=== PATIENT | female | born 1955 | race Hispanic/Latino ===

== ENCOUNTER 2019-03-15 23:04 | Emergency (ER) | payer BC ==
--- NOTE | 2019-03-15 23:25 | RAD ---
EXAM: Portable chest PROVIDED CLINICAL HISTORY: Syncope COMPARISON: None FINDINGS: Cardiac silhouette appears prominent, likely least partially on the basis of portable technique. No f ocal consolidation, pleural fluid or pneumothorax evident. IMPRESSION: No evidence for an acute cardiopulmonary process.
[2019-03-15 23:39] LABS: #Eosinphils 0.1 thou/uL (0.0-0.7); #Lymphocytes 2.5 thou/uL (1.20-3.40); #Monocytes 0.5 thou/uL (0.11-0.59); #Neutrophils 5.8 thou/uL (1.40-6.50); %Eosinophils 1.2 % (0.0-10.0); %Lymphocytes 28.4 % (21.0-51.0); %Monocytes 5.3 % (0.0-10.0); Hemoglobin 12.7 g/dL (12.0-16.0); Mean Corpuscular HGB CONC 34.5 g/dL (32.0-36.0); Mean Corpuscular Hemoglobin 31.1 pg (27.0-31.0); Platelet Count 323 thou/uL (130-400); RBC Distribution Width 11.7 % (11.5-14.5); Red Blood Cell (RBC) Count 4.09 mill/uL (4.20-5.40); White Blood Cell (WBC) Count 8.9 thou/uL (4.8-10.8)
[2019-03-16 00:01] LABS: ALT (SGPT) 13 U/L (8-55); AST (SGOT) 24 U/L (5-34); Albumin 4.5 g/dL (3.4-4.8); Alkaline Phosphatase 87 U/L (40-110); Anion Gap 16 mmol/L (10-20); BUN (Urea Nitrogen) 29 mg/dL (9.8-20.1); Bilirubin, Total 0.4 mg/dL (0.2-1.2); Calc. Creatinine Clearance 0 mL/min (70-130); Calcium 10.6 mg/dL (7.8-10.44); Carbon Dioxide 23 mmol/L (23-31); Chloride 99 mmol/L (98-107); Estimated GFR-MDRD 41; Globulin 3.7 g/dL (2.4-3.5); Glucose 119 mg/dL (80-115); Potassium 4.1 mmol/L (3.5-5.1); Protein, Total 8.2 g/dL (6.0-8.3); Sodium 134 mmol/L (136-145)
[2019-03-16 01:22] LABS: Bilirubin Negative (Negative); Blood, Urine Negative (Negative); Clarity Clear (Clear); Glucose, Urine (Dipstick) Normal (Negative); Leukocyte Negative Leu/uL (Negative); Nitrite Negative (Negative); Protein, Urine (Dipstick) Negative (Neg-Trace); Urobilinogen Normal mg/dL (Less than 2)
== END 2019-03-16 01:07 | disposition home or self-care (01) ==
LOC: ERS 23:04
DX: E86.0 Dehydration (principal); R55 Syncope and collapse; R19.7 Diarrhea, unspecified; E78.5 Hyperlipidemia, unspecified; E78.00 Pure hypercholesterolemia, unspecified; I10 Essential (primary) hypertension; Z79.899 Other long term (current) drug therapy
CPT/HCPCS: 71045; 80053; 81003; 84484; 85025; 93005